=== PATIENT | female | born 1980 | race Caucasian/White ===

== ENCOUNTER 2021-04-19 14:58 | Emergency (ER) | payer OTHER ==
[~2021-04-19] VITALS: Ht 149.9 cm; Wt 60.0 kg
[2021-04-19] MEDS ORDERED: ALPRAZOLAM1 MG PO (16:23)
[2021-04-19 16:47] LABS: HEMATOCRIT 42.5 % (37.0-47.0); HEMOGLOBIN 13.8 g/dl (12.0-16.0); IMMATURE GRANULOCYTES 0.4 % (0.0-5.0); MEAN CELL VOLUME 88.4 fL CALC (80.0-100.0); MEAN CORPUSCULAR HGB 28.7 pG CALC (26.0-32.0); MEAN CORPUSCULAR HGB CONC 32.5 g/dL CAL (32.0-36.0); NEUT# 5.91 thou/uL (2.00-7.15); RED BLOOD COUNT 4.81 mill/uL (4.20-5.60); RED CELL DISTRI WIDTH 12.8 % (11.5-15.5)
[2021-04-19 16:49] LABS: URINE BILIRUBIN - DIPSTICK NEGATIVE (NEGATIVE); URINE BLOOD DIPSTICK NEGATIVE (NEGATIVE); URINE COLOR YELLOW; URINE GLUCOSE - DIPSTICK NEGATIVE (NEGATIVE); URINE KETONE NEGATIVE (NEGATIVE); URINE LEUK ESTERASE NEGATIVE (NEGATIVE); URINE PH 7.5 (4.5-8.0); URINE PROTEIN - DIPSTICK NEGATIVE (NEG-TRACE); URINE UROBILINOGEN - DIPSTICK 0.2 E.U./dL (0.2)
[2021-04-19 16:51] LABS: URINE NITRITE - DIPSTICK NEGATIVE (Negative)
[2021-04-19 17:04] LABS: ALBUMIN 3.5 g/dL (3.2-5.0); ALKALINE PHOSPHATASE 79 u/l (38-126); ANION GAP 8 (6-22 (CALC)); BUN 11 mg/dL (7-17); BUN/CREATININE RATIO 17 (12-20 (CALC)); CARBON DIOXIDE 26 mmol/l (22-30); CHLORIDE 107 mmol/l (95-108); CREATININE 0.6 mg/dL (0.5-1.0); GFR > 60 ML/MIN (>=60 (CALC)); GFR FOR AFR.AMER. > 60 ML/MIN (>=60 (CALC)); POTASSIUM 3.6 mmol/l (3.5-5.1); SGOT/AST 35 u/l (14-36); SODIUM 136 mmol/l (137-146); TOTAL PROTEIN 6.8 g/dL (6.3-8.2)
[2021-04-19 17:09] LABS: BILIRUBIN, TOTAL 0.4 mg/dL (0.0-1.4)
[2021-04-19 18:03] VITALS: BP 122/74
== END 2021-04-19 18:12 | disposition home or self-care (01) ==
LOC: ED 14:58
PROVIDERS: Family Medicine
DX: R60.0 Localized edema (principal); R53.83 Other fatigue; M06.9 Rheumatoid arthritis, unspecified; Z87.440 Personal history of urinary (tract) infections

== ENCOUNTER 2022-09-14 19:15 | Emergency (ER) | payer OTHER ==
[~2022-09-14] VITALS: Ht 149.9 cm; Wt 61.0 kg
[~2022-09-14 19:15] MED LIST: ALPRAZOLAM1 MG PO
[2022-09-14] MEDS ORDERED: NAPROXEN500 MG PO (19:37)
[2022-09-14] MEDS ORDERED: PENICILLN VK500 MG PO (19:37)
[2022-09-14] MEDS ORDERED: BUPRENORPHIN8 MG SL (19:56)
[2022-09-14 20:04] VITALS: BP 102/64
== END 2022-09-14 20:04 | disposition home or self-care (01) ==
LOC: ED 19:15
DX: K04.7 Periapical abscess without sinus (principal); K02.9 Dental caries, unspecified; S02.5XXA Fracture of tooth (traumatic), initial encounter for closed fracture; K08.409 Partial loss of teeth, unspecified cause, unspecified class; M06.9 Rheumatoid arthritis, unspecified; X58.XXXA Exposure to other specified factors, initial encounter